=== PATIENT | male | born 1945 | race Caucasian/White ===

== ENCOUNTER 2022-09-11 10:16 | Emergency (ER) | payer OTHER, SELFPAY ==
[2022-09-11] VITALS (18 sets, daily range): BP systolic 108–182; BP diastolic 66–80; PULSE 69–70; RESP 14–23; TEMP 36.7; O2SAT 98
--- NOTE | 2022-09-11 10:15 | RT.EKG_ITS ---
APPROVED REPORT Exam: Resting ECG Reason for Exam: chest pain Patient Location: E HR:70 bpm ECG Measurements Heart Rate 70 AXIS [place] 198 P [id number] QRSd 102 QRS 22 QT 418 T 37 QTc 451 Conclusion Atrial-paced rhythm Physician: no stemi, paced, no significant st elevation or depression, no prior ekg for comparison
--- NOTE | 2022-09-11 10:31 | W.ED.GENAD ---
Discharge Plan Disposition Patient Disposition: Home Condition: Good Discharge Details Clinical Impression: Chest pain Primary Care Provider: Unknown,Unknown ED Provider: Mir Springer Home Meds and New Rx's Prescriptions: Continued atorvastatin 80 mg Tablet 40 mg PO DAILY aspirin 81 mg Tablet,Delayed Release (Dr/Ec) 81 mg PO DAILY nadolol 20 mg Tablet 40 mg PO DAILY amlodipine 10 mg Tablet 10 mg PO DAILY losartan 100 mg Tablet 100 mg PO DAILY Discharge Instructions Instructions: Chest Pain (ED) Additional Instructions: At this time your work-up is stable. Your blood work for your heart x2 are both normal. Your EKGs are stable. The CAT scan of your chest shows no evidence of blood clots, or significant other abnormalities. With your history of disease in general though, it is imperative that you follow-up closely with your primary care provider for reassessment. If you notice any worsening of your symptoms, or any new symptoms such as vomiting, diarrhea, fever, chills, shortness of breath, chest pain, numbness, weakness, or fainting , please return immediately to the emergency department for reevaluation. Please follow up with your primary care provider as soon as possible for reassessment and reevaluation. As always, it was a pleasure participating in your medical care today. Discharge Data Discharge Date/Time-TO BE ENTERED AT DEPARTURE: 09/11/22 14:39 Medical Decision Making 77-year-old male who is visiting from [place] with a past medical history of all tobacco use in the past, single-vessel CABG, previous stroke on aspirin, the pacemaker, presents today for evaluation of right-sided shoulder pain. Patient states that this morning the pain began, it was achy in nature and present in his right shoulder. It is not worse with movement of his shoulder. He does have some worsening of the pain when he breathes though, and during those episodes it radiates into his right upper chest. They did just travel up from [place] via car yesterday. He denies any cough, fever or chills. He denies any tearing or ripping sensation. He states that he never had any pain with his previous heart attack. He denies history of blood clots. He denies any syncope. No other complaints at this time. No other modifying factors. is at bedside Physical exam demonstrates well-appearing male, minimal pain at this time. Vital signs stable aside for hypertension. EKG shows no evidence of STEMI. Differential includes PE, less likely pneumothorax. Cardiac etiology is certainly of concern as well. We will evaluate for these, monitor closely and reassess. Symptoms appear inconsistent with dissection or AAA at this time. 1 PM Patient's laboratory work-up has returned, initial and delta troponin are normal, initial and repeat EKG are normal. D-dimer mildly elevated, CT was ordered and is negative for acute process. Patient feels notably well. proBNP is normal showing no signs of heart strain. Patient feels well and is requesting discharge. He is shoulder pain-free at this time. He has no shortness of breath. Patient feels well, and is asking for discharge. With the patient's history of cardiac disease in the past he certainly is moderate risk on his heart score. Family is driving back to [place] tomorrow morning. I had a long discussion with the patient with the options of observation and admission here versus discharge. We discussed the risk and benefits of this, including the worst-case scenarios. Patient understands these. Understanding these components, patient and family have elected for discharge home. We discussed concerning red flags for which to immediately return and the patient and family all understand this. Patient does appear notably clinically stable at this time. Symptoms appear clinically inconsistent with ACS at this time. There may certainly have been a musculoskeletal component. I have extensively reviewed the treatment plan and discharge instructions with the patient and their family. I have addressed all patient concerns at this time. The patient and family was made aware of what symptoms to monitor for that would warrant a return to the emergency department. Discussed the plan with the patient and family, they demonstrate verbal understanding and agreement with our assessment and plan at this time. The documentation in this chart was dictated using [employer] dictation software. Please excuse any dictation errors. FINDINGS: Tubes, catheters and devices: Power device in the soft tissues anterior left chest. Transvenous pacemaker leads in the heart Pulmonary arteries: No evidence of pulmonary embolus to the segmental level. Aorta: No aneurysm of the aorta. No dissection of the aorta. Lungs: Mild opacities in the lower lobes may represent atelectasis or pneumonia Pleural spaces: Unremarkable. No pneumothorax. No pleural effusion. Heart: Unremarkable. No cardiomegaly. No pericardial effusion. Lymph nodes: Unremarkable. No enlarged lymph nodes. Kidneys and ureters: 3.9 cm simple cyst left kidney. Additional simple cysts in both kidneys . No follow-up imaging recommended . Bones/joints: Median sternotomy Soft tissues: Unremarkable. IMPRESSION: 1. No evidence of pulmonary embolus to the segmental level. 2. No aneurysm of the aorta. 3. No dissection of the aorta. Thank you for allowing us to participate in the care of your patient. Dictated and Authenticated by: Kiela Barahona MD 09/11/2022 12:16 PM Eastern Time ([place] & [place]) HPI General Date/Time Provider Initiated Documentation: 09/11/22 10:29. HPI Narrative: 77-year-old male who is visiting from [place] with a past medical history of all tobacco use in the past, single-vessel CABG, previous stroke on aspirin, the pacemaker, presents today for evaluation of right-sided shoulder pain. Patient states that this morning the pain began, it was achy in nature and present in his right shoulder. It is not worse with movement of his shoulder. He does have some worsening of the pain when he breathes though, and during those episodes it radiates into his right upper chest. They did just travel up from [place] via car yesterday. He denies any cough, fever or chills. He denies any tearing or ripping sensation. He states that he never had any pain with his previous heart attack. He denies history of blood clots. He denies any syncope. No other complaints at this time. No other modifying factors. is at bedside Related Data Home Medications Medication Instructions Recorded Confirmed amlodipine 10 mg tablet 10 mg PO DAILY 09/11/22 09/11/22 aspirin 81 mg tablet,delayed 81 mg PO DAILY 09/11/22 09/11/22 release atorvastatin 80 mg tablet 40 mg PO DAILY 09/11/22 09/11/22 losartan 100 mg tablet 100 mg PO DAILY 09/11/22 09/11/22 nadolol 20 mg tablet 40 mg PO DAILY 09/11/22 09/11/22 Allergies Allergy/AdvReac Type Severity Reaction Status Date / Time No Known Allergies Allergy Unverified 09/11/22 11:41 General Stated Complaint: Chest Pain ALEM: 3 Review of Systems All systems reviewed & are unremarkable except as noted in HPI and below PFSH All Active Problems (Updated 09/11/22 @ 14:19 by Mir Springer DO) Chest pain (Acute) Surgical History (Updated 09/11/22 @ 10:41 by Leslie Hernandez RN) Hx of CABG Social History Smoking/Tobacco Use Status: Never Smoking risk assessment performed?: Yes Alcohol Intake: current Substance use type: does not use Do you feel safe at home: Yes Do you feel safe in your relationship?: Yes Exam Narrative Exam Narrative: 1.Const: Well-nourished, Well-developed, appearing stated age 2.Eyes: PERRL, no conjunctival injection, and symmetrical lids. 3.ENT: Atraumatic external nose and ears. Moist MM. Neck: Symmetric, trachea midline, No thyromegaly. 4.CVS: +S1/S2, No murmurs or gallops. Peripheral pulses 2+ and equal in all extremities. Brisk capillary refill in all extremities. 5.RESP: Unlabored respiratory effort. Clear to auscultation bilaterally. No wheezes rales or rhonchi 6.GI: Soft, Nontender/Nondistended, No hepatosplenomegaly. No guarding or rebound. 7.MSK: Normocephalic/Atraumatic, Extremities w/o deformity or ttp No cyanosis or clubbing, Normal movement of all extremities 8.Skin: Warm, Dry. No rashes or lesions. 9.Neuro: complaint specialist II-XII grossly intact. Sensation grossly intact, no focal neurologic deficits. 10.Psych: (AAO) x3. Appropriate mood and affect Course Vital Signs Vital signs: Vital Signs Temperature 36.7 C 09/11/22 10:21 Pulse 70 09/11/22 10:21 Respiratory Rate 20 09/11/22 10:21 Blood Pressure 180/80 H 09/11/22 10:21 Pulse Oximetry 98 09/11/22 10:21 Temperature 36.7 C 09/11/22 10:21 Temperature Source Oral 09/11/22 10:21 Pulse 70 09/11/22 10:21 Respiratory Rate 20 09/11/22 10:21 Blood Pressure 180/80 H 09/11/22 10:21 Blood Pressure Position Sitting 09/11/22 10:21 Pulse Oximetry 98 09/11/22 10:21 Oxygen Delivery Method Room Air 09/11/22 10:21 Oxygen Flow Rate 0 09/11/22 10:21 POCUS Exam (ED) Limited Cardiac Exam DATE OF EXAM: 09/11/22 TIME OF EXAM: 10:45 PROVIDER THAT PERFORMED THE STUDY: Mir Springer IS THIS A REPEAT EXAM DURING THIS ENCOUNTER: no REASON FOR EXAM: Chest pain VISUALIZED STRUCTURES: Left atrium, Left ventricle and Right ventricle VIEW OBTAINED: Parasternal long-axis and Parasternal short-axis PERTINENT FINDINGS/IMPRESSION: No apparent abnormalities Exam complete
[2022-09-11] MEDS: Aspirin 81 MG CHEW 324 MG CH (10:38)
[2022-09-11] MEDS: nitroGLYcerin 0.4 MG TAB SL (10:41)
[2022-09-11 10:49] LABS: Abs Immature Grans 0.03 10^3/uL (0.0-0.06); Absolute Basophil Count 0.06 10^3/uL (0.0-0.2); Absolute Eosinophil Count 0.19 10^3/uL (0.0-0.7); Absolute Lymphocyte Count 1.47 10^3/uL (1.2-3.4); Absolute Monocyte Count 0.73 10^3/uL (0.1-0.8); Absolute Neutrophil Count 6.03 10^3/uL (1.2-6.7); Basophils % 0.7; Eosinophils % 2.2; HCT 41.6 % (40.0-50.0); HGB 13.9 g/dL (13.5-17.5); Immature Grans % 0.4; Lymphocytes % 17.3; MCH 30.7 pg (27.0-33.0); MCHC 33.4 % (32.0-36.0); MCV 92 fL (80-95); MPV 9.6 fL (8.0-11.0); Monocytes % 8.6; Neutrophils % 70.8; Platelet Count 274 10^3/uL (130-400); RBC 4.53 10^6/uL (4.36-5.78); RDW 13.1 % (11.8-14.1); RDW-SD 43.9 fL; WBC 8.51 10^3/uL (4.4-10.8)
[2022-09-11 11:06] LABS: Prothrombin Time 9.9 sec (9.3-11.0)
[2022-09-11 11:25] LABS: ALT 40 U/L (16-63); AST 28 U/L (15-37); Albumin 3.8 g/dL (3.4-5.0); Alkaline Phosphatase 58 U/L (46-116); Anion Gap 6.8 mmol/L (3-11); BUN 27 mg/dL (7-18); Bilirubin, Total 0.5 mg/dL (0.2-1.0); CO2 28.2 mmol/L (21.0-32.0); CREATININE 1.6 mg/dL (0.70-1.30); Calcium 9.3 mg/dL (8.5-10.1); Chloride 103 mmol/L (98-107); Estimated GFR 43.56 (mL/min/1.73m2); Glucose 167 mg/dL (74-106); Magnesium 1.8 mg/dL (1.8-2.4); NT-proBNP 177 pg/mL (<300); Potassium 3.9 mmol/L (3.5-5.1); Sodium 138 mmol/L (136-145); Total Protein 7.7 g/dL (6.4-8.2); Troponin I < 50 ng/L (<or=60)
--- NOTE | 2022-09-11 11:30 | DI.CT_ITS ---
Exam(s) CT CHEST PE CTA EXAM: CT CHEST PE CTA CLINICAL HISTORY: elevated dimer, recent trip, r/o pe. TECHNIQUE: Imaging Protocol: Axial CT angiography was performed with multi-slice acquisition and mu lti-planar and/or 3D reconstructions. CONTRAST MATERIAL: Intravenous: Omnipaque 350 contrast volume:100 mL COMPARISON: No exams were available for comparison FINDINGS: Tracheobronchial tree: Patent where visualized. Pulmonary parenchyma: No consolidation or dominant measurable mass. There is scarring or atelectasis in the right lung base. There is elevation of the right hemidiaphragm. Pulmonary Arteries: No evidence of filling defect to suggest pulmonary emboli. Mediastinum and Bernadine: No dominant adenopathy or fluid collection. The esophagus is unremarkable. Visualized thyroid gland: Unremarkable. Pleura: No effusion or pneumothorax. Heart: The heart is not dilated. Marked coronary artery calcification. No pericardial effusion. Car diac pacing wires are in place. Aorta: Thoracic aorta non-dilated. No evidence of dissection. Atherosclerosis. Upper abdomen: Colonic diverticulosis without evidence of diverticulitis. Bilateral simple renal cy sts. No follow-up is recommended. Tubes, Catheters, and Lines: There is a left-sided cardiac pacing device. Soft tissues: Unremarkable. Bones: Within normal limits for the patient's age.Old healed right rib fractures. IMPRESSION: No evidence of pulmonary embolism, thoracic aortic dissection or aneurysm. RADIATION DOSE DELIVERED: 495.19mGy.cm Total DLP DATA REPOSITORY: All CT scans at this facility are submitted to the National Radiology Data Registry (NRDR) Dose Index Registry (DIR) with the [employer] (ACR). RADIATION OPTIMIZATION: All CT scans at this facility use at least one of these dose optimization te chniques: automated exposure control; mA and/or kV adjustment per patient size (includes targeted exa ms where dose is matched to clinical indication); or iterative reconstruction.
[2022-09-11 11:31] LABS: D-Dimer 681 ng/mlFEU (<500)
[2022-09-11] MEDS: Omnipaque 350 MG/ML 100 ML BTL IJ (11:54)
[2022-09-11] MEDS: Normal Saline - Diluent 50 ML VIAL IJ (11:55)
--- NOTE | 2022-09-11 12:16 | DI.VRAD_ITS ---
PROCEDURE INFORMATION: Exam: CTA Chest With Contrast Exam date and time: 09/11/2022 11:44 AM Age: 77 years old Clinical indication: Other: Elevated d-dimer TECHNIQUE: Imaging protocol: Computed tomographic angiography of the chest with contrast. 3D rendering (Not supervised by radiologist): MIP and/or 3D reconstructed images were created by the technologist. Contrast material: [id number]; Contrast volume: 100 ml; Contrast route: INTRAVENOUS (IV); COMPARISON: No relevant prior studies available. FINDINGS: Tubes, catheters and devices: Power device in the soft tissues anterior left chest. Transvenous pacemaker leads in the heart Pulmonary arteries: No evidence of pulmonary embolus to the segmental level. Aorta: No aneurysm of the aorta. No dissection of the aorta. Lungs: Mild opacities in the lower lobes may represent atelectasis or pneumonia Pleural spaces: Unremarkable. No pneumothorax. No pleural effusion. Heart: Unremarkable. No cardiomegaly. No pericardial effusion. Lymph nodes: Unremarkable. No enlarged lymph nodes. Kidneys and ureters: 3.9 cm simple cyst left kidney. Additional simple cysts in both kidneys . No follow-up imaging recommended . Bones/joints: Median sternotomy Soft tissues: Unremarkable. IMPRESSION: 1. No evidence of pulmonary embolus to the segmental level. 2. No aneurysm of the aorta. 3. No dissection of the aorta. Dictated and Authenticated by: Keila Barahona MD. Ordering:LETICIA Hester MD
--- NOTE | 2022-09-11 13:45 | RT.EKG_ITS ---
APPROVED REPORT Exam: Resting ECG Reason for Exam: chest pain Patient Location: E HR:70 bpm ECG Measurements Heart Rate 70 AXIS [place] 51 P [id number] QRSd 97 QRS 13 QT 387 T [id number] QTc 418 Conclusion Atrial-paced complexes...other complexes also detected Anteroseptal infarct, old...Q >40mS, V1-V2 Nonspecific T abnormalities, lateral leads...T <-0.10mV, I aVL V5 V6 Physician: no stemi, stable, unchanged
[2022-09-11 13:48] LABS: Troponin I < 50 ng/L (<or=60)
== END 2022-09-11 14:39 | disposition home or self-care (01) ==
PROVIDERS: Emergency Provider Student in an Organized Health Care Education/Training Program
DX: R07.9 Chest pain, unspecified (principal); I10 Essential (primary) hypertension; R79.89 Other specified abnormal findings of blood chemistry; Z79.82 Long term (current) use of aspirin; Z86.73 Personal history of transient ischemic attack (TIA), and cerebral infarction without residual deficits; Z95.0 Presence of cardiac pacemaker; Z95.1 Presence of aortocoronary bypass graft
CPT/HCPCS: 36415; 71275; 80053; 93005; 93308; 99285; 83735; 83880; 84484; 85025; 85379; 85610; 85730; 93010; J3490